=== PATIENT | female | born 1955 ===

== ENCOUNTER 2022-01-06 05:50 | Day surgery (SDC) | payer OTHER ==
[~2022-01-06] VITALS: Ht 170.2 cm; Wt 108.9 kg
[~2022-01-06 05:50] MED LIST: GLIPIZIDE XL10 MG PO; GLIPIZIDE5 MG PO; GLUMETZA1000 MG PO; HORIZANT300 MG PO; INTEGRA PLUS C1 EACH PO; LOSARTAN-HCTZ1 EAC1 PO; METFORMIN HCL500 MG PO; OXYC1TAB9 PO; SEPTRA DS TABLE1 TAB PO; SMZ-TMP DS 800-1 TAB PO; TOPROL XL50 M1 PO; XARELTO10 MG PO
== END 2022-01-06 10:40 | disposition home or self-care (01) ==
LOC: CIR.AMB 05:50
PROVIDERS: ATTEND Surgery Surgery of the Hand
DX: M65.841 Other synovitis and tenosynovitis, right hand (principal); I10 Essential (primary) hypertension; E11.9 Type 2 diabetes mellitus without complications; Z79.84 Long term (current) use of oral hypoglycemic drugs

== ENCOUNTER 2023-07-13 12:00 | Inpatient (IN) | payer OTHER ==
[2023-07-13] MEDS ORDERED: ISORDIL10 MG (13:50)
[2023-07-13] MEDS ORDERED: ACID CONTROLLER20 MG (13:50)
[2023-07-13] MEDS ORDERED: ECOTRIN81 MG (13:51)
[2023-07-13] MEDS ORDERED: VIRT-CAPS SOFTGE1 MG (13:51)
[2023-07-13] MEDS ORDERED: AMLODIPINE-OLM1 EAC2 (13:51)
[2023-07-13] MEDS ORDERED: HUMALOG100 UNIT/2 (13:51)
[2023-07-13] MEDS ORDERED: LANTUS SOL100 UNIT/1 (13:51)
[2023-07-13] MEDS ORDERED: MAXFE CAPLET1 EAC1 (13:52)
[2023-07-13] MEDS ORDERED: OZEMPIC1 MG/0.71 (13:52)
[2023-07-13] MEDS ORDERED: FARXIGA10 MG (13:52)
[2023-07-13] MEDS ORDERED: ELIQUIS5 MG (13:52)
[2023-07-13] MEDS ORDERED: CRESTOR40 MG (13:53)
[2023-07-15 14:39] LABS: INR 1.12; PARTIAL THROMBOPLASTIN TIME 30.7 SECONDS (22.0-34.0); PROTHROMBIN TIME 11.7 SECONDS (9.0-11.5)
[2023-07-18] MEDS ORDERED: METRONIDAZOLE/SODIUM CHLORIDE 500 MG/100 ML PIGGYBACK IV ONE ×3 (07:16→09:00)
[2023-07-18] MEDS ORDERED: CEFTRIAXONE SODIUM 2,000 MG VIAL ONE (07:16)
[2023-07-18] MEDS ORDERED: CEFTRIAXONE SODIUM 1,000 MG VIAL ONE (07:19)
[2023-07-18] MEDS ORDERED: AMLODIPINE BESYL5 MG (08:01)
[2023-07-18] MEDS ORDERED: METOPROLOL TART50 MG (08:01)
[2023-07-18] MEDS ORDERED: CEFTRIAXONE SODIUM 2,000 MG VIAL IV ONE (09:00)
[2023-07-18] MEDS ORDERED: BUPIVACAINE HCL/PF 0.5% 5MG/ML VIAL IJ ONE (09:00)
[2023-07-18] MEDS ORDERED: LIDOCAINE HCL/EPINEPHRINE 20 ML VIAL IJ ONE (09:00)
[2023-07-18] MEDS ORDERED: MORPHINE SULFATE 4 MG/ML CARTRIDGE IV PRN (12:00)
[2023-07-18] MEDS ORDERED: 0.9 % SODIUM CHLORIDE 1,000 ML IV SCH (12:00)
[2023-07-18] MEDS ORDERED: ACETAMINOPHEN 500 MG GEL..CAP PO SCH (12:00)
[2023-07-18] MEDS ORDERED: INSULIN LISPRO 1,000 UNIT/10 ML UNITS SUBCUTANEO PRN (12:00)
[2023-07-18] MEDS ORDERED: ONDANSETRON HCL 2 MG/ML VIAL IV PRN (12:00)
[2023-07-18] MEDS ORDERED: OxyCODONE HCL 5 MG TABLET (ROXICODONE) PO PRN (12:00)
[2023-07-18] MEDS ORDERED: DEXTROSE 50 % IN WATER 0.5 G/ML DISP.SYRIN IV PRN (12:00)
[2023-07-18 13:58] LABS: HEMATOCRIT 32.9 % (36.0-45.00); HEMOGLOBIN 10.5 g/dL (12.0-15.00); MEAN CELL VOLUME 80.7 fL (80.00-100.00); MEAN CORPUSCULAR HEMOGLOBIN 25.8 pg (27.00-32.0); PLATELET COUNT 234 K/uL (150-450); RED BLOOD COUNT 4.08 M/uL (4.00-6.00); RED CELL DISTRIBUTION WIDTH 16.7 % (11.5-14.5)
[2023-07-18] MEDS ORDERED: ONDANSETRON HCL 2 MG/ML VIAL ONE (14:11)
[2023-07-18 14:32] LABS: ALBUMIN 3.7 gm/dL (3.4-5.0); CREATININE SERUM 1.61 mg/dL (0.55-1.02); GFR 31.92; MAGNESIUM 2.3 mg/dL (1.8-2.4); PHOSPHOROUS 4.7 mg/dL (2.5-4.9); POTASSIUM 4.25 mEq/L (3.5-5.1)
[2023-07-18] MEDS ORDERED: ISOSORBIDE DINITRATE 10 MG TABLET PO SCH (17:00)
[2023-07-18] MEDS ORDERED: POLYETHYLENE GLYCOL 3350 17 GM BLIST.PACK PO SCH (17:00)
[2023-07-18] MEDS ORDERED: FAMOTIDINE/PF 20 MG/2 ML VIAL IV PUSH SCH (21:00)
[2023-07-19 06:37] LABS: HEMATOCRIT 27.2 % (36.0-45.00); HEMOGLOBIN 9.1 g/dL (12.0-15.00); MEAN CORPUSCULAR HGB CONC 33.4 g/dl (32.0-36.0); PLATELET COUNT 204 K/uL (150-450); RED BLOOD COUNT 3.36 M/uL (4.00-6.00); RED CELL DISTRIBUTION WIDTH 16.3 % (11.5-14.5)
[2023-07-19 06:53] LABS: CALCIUM 8.2 mg/dL (8.5-10.1); CREATININE SERUM 1.36 mg/dL (0.55-1.02); GFR 38.78; MAGNESIUM 2.4 mg/dL (1.8-2.4); PHOSPHOROUS 4.2 mg/dL (2.5-4.9); POTASSIUM 4.16 mEq/L (3.5-5.1)
[2023-07-19] MEDS ORDERED: MAGNESIUM CHLORIDE 70 MG TABLET.DR PO SCH (09:00)
[2023-07-19] MEDS ORDERED: LACTOBACILLUS ACIDOPHILUS 1 CAP CAP PO SCH (09:00)
[2023-07-19] MEDS ORDERED: IRON FUM,PS/FOLIC ACID/VITC/B3 1 CAP CAPSULE PO SCH (09:00)
[2023-07-19] MEDS ORDERED: METOPROLOL TARTRATE 50 MG TABLET PO SCH (09:00)
[2023-07-19] MEDS ORDERED: AMLODIPINE BESYLATE 5 MG TABLET PO SCH ×2 (09:00)
[2023-07-19] MEDS ORDERED: ENOXAPARIN SODIUM 40 MG/0.4 ML SYRINGE SUBCUTANEO SCH (17:00)
[2023-07-20 06:55] LABS: HEMATOCRIT 26.2 % (36.0-45.00); MEAN CELL VOLUME 82.2 fL (80.00-100.00); MEAN CORPUSCULAR HGB CONC 33.3 g/dl (32.0-36.0); PLATELET COUNT 194 K/uL (150-450); RED BLOOD COUNT 3.19 M/uL (4.00-6.00); RED CELL DISTRIBUTION WIDTH 16.5 % (11.5-14.5)
[2023-07-20 07:08] LABS: CALCIUM 8.3 mg/dL (8.5-10.1); CREATININE SERUM 1.36 mg/dL (0.55-1.02); GFR 38.78; MAGNESIUM 2.2 mg/dL (1.8-2.4); PHOSPHOROUS 2.5 mg/dL (2.5-4.9); POTASSIUM 3.92 mEq/L (3.5-5.1)
[2023-07-20 07:19] LABS: HEMOGLOBIN 8.7 g/dL (12.0-15.00); MEAN CORPUSCULAR HEMOGLOBIN 27.2 pg (27.00-32.0)
[2023-07-20] MEDS ORDERED: POTASSIUM PHOS,M-BASIC-D-BASIC 15 MM in 0.9 % SODIUM CHLORIDE 250 ML IV ONE (12:00)
[2023-07-20] MEDS ORDERED: NAPH,MB-DB/K PH,MBDB 1 PKT PACKET PO STA (12:21)
[2023-07-20] MEDS ORDERED: FAMOtidine 20 MG TABLET PO SCH (17:00)
== END 2023-07-20 14:16 | disposition home or self-care (01) | DRG 330 ==
LOC: O/R 07-18 06:00 → SURH 07-18 08:45
PROVIDERS: ADMIT Colon & Rectal Surgery; ATTEND Colon & Rectal Surgery
PROC: 07BB4ZZ Excision of Mesenteric Lymphatic, Percutaneous Endoscopic Approach (ICD-10-PCS; 2023-07-18)
PROC: 0DBU4ZZ Excision of Omentum, Percutaneous Endoscopic Approach (ICD-10-PCS; 2023-07-18)
PROC: 0DTF4ZZ Resection of Right Large Intestine, Percutaneous Endoscopic Approach (ICD-10-PCS; principal; 2023-07-18 08:45)
PROC: 4A12X4Z Monitoring of Cardiac Electrical Activity, External Approach (ICD-10-PCS; 2023-07-19)
DX: K43.9 Ventral hernia without obstruction or gangrene (principal); I13.0 Hypertensive heart and chronic kidney disease with heart failure and stage 1 through stage 4 chronic kidney disease, or unspecified chronic kidney disease; I50.30 Unspecified diastolic (congestive) heart failure; R59.0 Localized enlarged lymph nodes; K63.5 Polyp of colon; E11.22 Type 2 diabetes mellitus with diabetic chronic kidney disease; N18.30 Chronic kidney disease, stage 3 unspecified; Z79.4 Long term (current) use of insulin; I25.10 Atherosclerotic heart disease of native coronary artery without angina pectoris; I48.0 Paroxysmal atrial fibrillation

== ENCOUNTER 2023-07-15 10:50 | Outpatient (CLI) | payer OTHER ==
[~2023-07-15 10:50] MED LIST changes: +ACID CONTROLLER20 MG; +AMLODIPINE-OLM1 EAC2; +CRESTOR40 MG; +ECOTRIN81 MG; +ELIQUIS5 MG; +FARXIGA10 MG; +HUMALOG100 UNIT/2; +ISORDIL10 MG; +LANTUS SOL100 UNIT/1; +MAXFE CAPLET1 EAC1; +OZEMPIC1 MG/0.71; +VIRT-CAPS SOFTGE1 MG
== END 2023-07-15 10:55 | disposition home or self-care (01) ==
LOC: TOM 10:50
PROVIDERS: ATTEND Colon & Rectal Surgery
DX: K63.5 Polyp of colon (principal)